=== PATIENT | female | born 1980 | race Two or more races ===

== ENCOUNTER 2017-11-13 19:55 | Emergency (ER) | payer MEDICAID, OTHER ==
[~2017-11-13] VITALS: Ht 157.5 cm; Wt 65.8 kg
[2017-11-13 20:26] VITALS: BP 137/99
== END 2017-11-13 23:26 | disposition left against medical advice (07) ==
LOC: ER 19:55
DX: M79.89 Other specified soft tissue disorders (principal); Z53.21 Procedure and treatment not carried out due to patient leaving prior to being seen by health care provider

== ENCOUNTER 2017-11-18 09:08 | Inpatient (IN) | payer MEDICAID, OTHER ==
[~2017-11-18] VITALS: Ht 160 cm; Wt 74.4 kg
[2017-11-18] MEDS ORDERED: SODIUM CHLORIDE 0.9% 1,000 ML IV ONE (09:59)
[2017-11-18 10:28] LABS: Basophils # (auto) 0 uL; Basophils % (auto) 0.4 % (0.0-2.0); Eosinophils # (auto) 0.1 uL; Eosinophils % (auto) 1.5 % (0.0-7.0); Hematocrit 38.3 % (36.0-46.0); Hemoglobin 12.8 g/dL (12.2-16.2); Lymphocytes # (auto) 1.3 uL; Lymphocytes % (auto) 14.4 % (10.0-50.0); Mean Corpuscular Hemoglobin 28.3 pg (28.0-32.0); Mean Corpuscular Hgb Conc. 33.4 g/dL (32.0-36.0); Mean Corpuscular Volume 84.6 fL (80.0-100.0); Monocytes # (auto) 0.7 uL; Monocytes % (auto) 7.8 % (0.0-12.0); Neutrophils # (auto) 6.9 uL; Neutrophils % (auto) 75.9 % (37.0-80.0); Platelet Count (auto) 410 10^3/uL (140-450); Red Blood Cells 4.53 10^6/uL (4.0-5.20); Red Cell Distribution Width 13.6 % (11.8-14.3); White Blood Cell 9.1 10^3/uL (4.4-10.8)
[2017-11-18 10:42] LABS: INR 1.02 (0.9-1.15); Partial Thromboplastin Time 32.2 sec (23.78-33.04); Prothrombin Time 10.9 sec (9.27-12.13)
[2017-11-18] MEDS ORDERED: cefTRIAXone 1GM/10ml IVPUSH 10 ML IV ONE (10:45)
[2017-11-18 10:53] LABS: Alanine Aminotransferase 22 U/L (13-56); Albumin 3.5 g/dL (3.4-5.0); Alkaline Phosphatase 74 U/L (45-117); Anion Gap 9 (5-15); Aspartate Aminotransferase 16 U/L (15-37); BUN/Creatinine Ratio 14.3; Bilirubin, Total 0.3 mg/dL (0.2-1.0); Blood Urea Nitrogen 13 mg/dL (7-18); Calcium 8.9 mg/dL (8.5-10.1); Carbon Dioxide 27 mmol/L (21-32); Chloride 102 mmol/L (98-107); GFR African American 90 mL/min; GFR Non-African American 74 mL/min; Glucose 105 mg/dL (74-106); Potassium 3.9 mmol/L (3.5-5.1); Sodium 138 mmol/L (136-145); Total Protein 8.6 g/dL (6.4-8.2)
[2017-11-18] MEDS ORDERED: TEMAZEPAM 15 MG CAP PO PRN (13:15)
[2017-11-18] MEDS ORDERED: LORazepam 0.5 MG TAB PO PRN (13:15)
[2017-11-18] MEDS ORDERED: ACETAMINOPHEN 500 MG TAB PO PRN (13:15)
[2017-11-18] MEDS ORDERED: MORPHINE SULFATE 8mg/ml INJ SDV IV PRN ×2 (13:15)
[2017-11-18] MEDS ORDERED: PROMETHAZINE HCL 25 MG/ML 1ML IV PRN (13:15)
[2017-11-18] MEDS ORDERED: NITROGLYCERIN 0.4 MG SL TAB SL PRN (13:15)
[2017-11-18] MEDS ORDERED: LACTULOSE 20Gm/30ML SOLN PO PRN (13:15)
[2017-11-18] MEDS: ENOXAPARIN SOD 40 MG/0.4 ML SYRINGE SC SCH (13:30)
[2017-11-18] MEDS: CLINDAMYCIN 600MG IV 50 ML IV SCH ×2 (13:39→22:13)
[2017-11-18] MEDS: SODIUM CHLORIDE 0.9% 1,000 ML IV SCH ×2 (13:40→23:15)
[2017-11-18 16:30] VITALS: BP 127/94
[2017-11-18 17:00] VITALS: BP 127/94
[2017-11-18] MEDS ORDERED: THIAMINE 100mg/ml INJ (200mg/2ml VIAL) IV ONE (20:45)
[2017-11-18] MEDS ORDERED: chlordiazePOXIDE HCL 25 MG CAP PO PRN (20:45)
[2017-11-18 22:00] VITALS: BP 123/71
[2017-11-18] MEDS: HYDROcodone-ACET 5/325MG TAB PO PRN (22:12)
[2017-11-19] MEDS: chlordiazePOXIDE HCL 5 MG CAP PO SCH ×5 (01:00→23:53)
[2017-11-19 03:02] LABS: Urine Bacteria FEW /hpf (None Seen); Urine Blood Negative /uL (Negative); Urine Specific Gravity 1.018 (1.001-1.035); Urine WBC 46 /hpf (0 - 5)
[2017-11-19 05:00] VITALS: BP 114/75
[2017-11-19] MEDS: CLINDAMYCIN 600MG IV 50 ML IV SCH ×3 (06:01→21:33)
[2017-11-19] MEDS ORDERED: cefTRIAXone 1GM/10ml IVPUSH 10 ML IV SCH (09:00)
[2017-11-19] MEDS: ENOXAPARIN SOD 40 MG/0.4 ML SYRINGE SC SCH ×2 (09:20→10:00)
[2017-11-19] MEDS ORDERED: THIAMINE 100mg/ml INJ (200mg/2ml VIAL) IV SCH (10:00)
[2017-11-19] MEDS ORDERED: DIVA500T53 PO (10:07)
[2017-11-19] MEDS ORDERED: TRAZ50TA2 PO (10:07)
[2017-11-19 13:00] VITALS: BP 116/81
[2017-11-19 17:00] VITALS: BP 123/83
[2017-11-19] MEDS: SODIUM CHLORIDE 0.9% 1,000 ML IV SCH ×2 (17:45→19:15)
[2017-11-19] MEDS: HYDROcodone-ACET 5/325MG TAB PO PRN (20:28)
[2017-11-19 22:00] VITALS: BP 112/78
[2017-11-20 05:00] VITALS: BP 121/76
[2017-11-20] MEDS: chlordiazePOXIDE HCL 5 MG CAP PO SCH (06:08)
[2017-11-20] MEDS: CLINDAMYCIN 600MG IV 50 ML IV SCH (06:08)
[2017-11-20] MEDS: SODIUM CHLORIDE 0.9% 1,000 ML IV SCH (06:09)
[2017-11-20 06:14] LABS: Basophils # (auto) 0 uL; Basophils % (auto) 0.5 % (0.0-2.0); Eosinophils # (auto) 0.2 uL; Eosinophils % (auto) 3.4 % (0.0-7.0); Hematocrit 36.1 % (36.0-46.0); Hemoglobin 12.2 g/dL (12.2-16.2); Lymphocytes # (auto) 1.5 uL; Lymphocytes % (auto) 22.6 % (10.0-50.0); Mean Corpuscular Hemoglobin 28.9 pg (28.0-32.0); Mean Corpuscular Hgb Conc. 33.8 g/dL (32.0-36.0); Mean Corpuscular Volume 85.5 fL (80.0-100.0); Monocytes # (auto) 0.7 uL; Monocytes % (auto) 10.6 % (0.0-12.0); Neutrophils # (auto) 4.2 uL; Neutrophils % (auto) 62.9 % (37.0-80.0); Nucleated Red Blood Cells % 0.1 %; Platelet Count (auto) 368 10^3/uL (140-450); Red Blood Cells 4.22 10^6/uL (4.0-5.20); Red Cell Distribution Width 13.7 % (11.8-14.3); White Blood Cell 6.6 10^3/uL (4.4-10.8)
[2017-11-20 06:30] LABS: Albumin 2.7 g/dL (3.4-5.0); Calcium 8.4 mg/dL (8.5-10.1); Potassium 3.9 mmol/L (3.5-5.1)
[2017-11-20 06:32] LABS: BUN/Creatinine Ratio 15.9
[2017-11-20 06:45] LABS: Bilirubin, Total 0.1 mg/dL (0.2-1.0); Total Protein 7.2 g/dL (6.4-8.2)
[2017-11-20 09:00] VITALS: BP 113/73
== END 2017-11-20 11:17 | disposition home or self-care (01) | DRG 383 ==
LOC: ER 09:08 → TELE 09:09 → TELE-WESTW 16:04 → WEST WING 11-19 23:58
PROVIDERS: ADMIT Internal Medicine; ATTEND Internal Medicine
DX: L03.116 Cellulitis of left lower limb (principal); E43 Unspecified severe protein-calorie malnutrition; I10 Essential (primary) hypertension; Z87.442 Personal history of urinary calculi; N20.0 Calculus of kidney; F10.20 Alcohol dependence, uncomplicated; Z82.49 Family history of ischemic heart disease and other diseases of the circulatory system; Z68.29 Body mass index [BMI] 29.0-29.9, adult; Z79.899 Other long term (current) drug therapy
CPT/HCPCS: 36415; 71045; 73700; 80053; 81001; 83605; 83880; 84484; 85025; 85610; 85652; 85730; 87040; 93970; 96361; 96374; J3490

== ENCOUNTER 2022-10-15 00:27 | Emergency (ER) | payer MEDICAID ==
[~2022-10-15] VITALS: Ht 160 cm; Wt 70.5 kg
[~2022-10-15 00:27] MED LIST: DIVA1TAB59 PO; DIVA500T2 PO; TRAZ50TA2 PO
[2022-10-15 00:41] VITALS: BP 156/96
== END 2022-10-15 01:58 | disposition left against medical advice (07) ==
LOC: ER 00:27
DX: H57.13 Ocular pain, bilateral (principal); Z53.21 Procedure and treatment not carried out due to patient leaving prior to being seen by health care provider

== ENCOUNTER 2025-04-06 17:10 | Emergency (ER) | payer MEDICAID ==
[~2025-04-06] VITALS: Ht 165.1 cm; Wt 85.0 kg
[~2025-04-06 17:10] MED LIST changes: +DIVA-91 PO; -DIVA500T2 PO; +TRAZ-227 PO; -TRAZ50TA2 PO
[2025-04-06 17:27] VITALS: BP 156/72; TEMP 97.9
[2025-04-06 18:16] LABS: Hematocrit 45.0 % (36.0-46.0); Hemoglobin 15.1 g/dL (12.2-16.2); Mean Corpuscular Hemoglobin 27.8 pg (28.0-32.0); Mean Corpuscular Volume 82.9 fL (80.0-100.0); Nucleated Red Blood Cells % 0.0 %
[2025-04-06 18:29] LABS: Alkaline Phosphatase 58 U/L (46-116); Anion Gap 11 (5-15); BUN/Creatinine Ratio 8.8 (10.0-20.0); Calcium 9.6 mg/dL (8.7-10.4); Carbon Dioxide 26 mmol/L (20-31); Chloride 100 mmol/L (98-107); Potassium 4.2 mmol/L (3.5-5.1); Sodium 137 mmol/L (136-145)
[2025-04-06 18:30] LABS: Alanine Aminotransferase < 9 U/L (7-40); Albumin 4.9 g/dL (3.2-4.8); Bilirubin, Total 0.4 mg/dL (0.2-1.0); Blood Urea Nitrogen 8 mg/dL (9-23); Glucose 131 mg/dL (74-106); Total Protein 9.1 g/dL (5.7-8.2)
[2025-04-06] MEDS: FAMOTIDINE 20 MG TAB PO ONE (19:00)
[2025-04-06] MEDS: MAALOX PLUS or MAALOX 30 ML PO ONE (19:00)
[2025-04-06] MEDS: hydrOXYzine 25 MG TAB or CAP PO ONE (19:01)
[2025-04-06] MEDS: ACETAMINOPHEN 325 MG TAB PO ONE (19:01)
[2025-04-06 19:03] VITALS: PULSE 88; RESP 19; O2SAT 98
--- NOTE | 2025-04-06 19:29 | ED.PDOC ---
History of Present Illness HPI Comments 45-year-old female with past medical history as alcohol abuse, anxiety presenting for evaluation midsternal chest pain over the past couple of days. Patient reports a constant pressure in the center of the chest. Some nausea, no vomiting with this. No associated shortness of breath. Patient reports quittin g alcohol sometime ago. Also keeps stating that she is very anxious. Feels as if her heart is racing. Chief Complaint: Chest Pain Time Seen by MD: 17:14 Primary Care Provider: tobias Allergies: Coded Allergies: NO KNOWN ALLERGIES (Unverified , 10/27/10) Home Meds Reported Medications Divalproex Sodium (Depakote) 500 Mg Tab, 1500 MG PO QPM, TAB 06/14/18 Divalproex Sodium (Divalproex Sodium Dr) 500 Mg Tab, 1000 MG PO DAILY, TAB 06/14/18 Trazodone Hcl (Trazodone Hcl) 50 Mg Tab, 100 MG PO BID, MG 11/19/17 Information Source: Patient Mode of Arrival: EMS Past Medical History PAST MEDICAL HISTORY: Kidney Stones Surgical History: Denies all surgeries INTERPERSONAL COMMUNICATIONS PROFESSOR History: No Pertinent INTERPERSONAL COMMUNICATIONS PROFESSOR History Family History Family History: No family hx of HTN Social History Smoker: Non-Smoker Alcohol: Denies ETOH Use Drugs: Denies Drug Use Lives In: Home Constitutional: denies: chills, diaphoresis, fatigue, fever, malaise, sweats, weakness, others EENTM: denies: blurred vision, double vision, ear bleeding, ear discharge, ear drainage, ear pain, ear ringing, eye pain, eye redness, hearing loss, mouth pain, mouth swelling, nasal discharge, nose bleeding, nose congestion, nose pain, photophobia, tearing, throat pain, throat swelling, voice changes, others Respiratory: denies: cough, hemoptysis, orthopnea, SOB at rest, shortness of breath, SOB with excertion, stridor, wheezing, others Cardiovascular: reports: chest pain, dizzy spells, diaphoresis, Dyspnea on exertion, edema, irregular heart beat, left arm pain, lightheadedness, palpitations, PND, syncope, others Gastrointestinal: denies: abdomen distended, abdominal pain, blood streaked bowels, constipated, diarrhea, dysphagia, difficulty swallowing, hematemesis, melena, nausea, poor appetite, poor fluid intake, rectal bleeding, rectal pain, vomiting, others Genitourinary: denies: abnormal vagina bleeding, burning, dyspareunia, dysuria, flank pain, frequency, hematuria, incontinence, pain, , vagina discharge, urgency, others Neurological: denies: dizziness, fainting, headache, left sided numbness, left sided weakness, numbness, paresthesia, pre-existing deficit, right sided numbnes s, right sided weakness, seizure, speech problems, tingling, tremors, weakness, others Musculoskeletal: denies: back pain, gout, joint pain, joint swelling, muscle pain, muscle stiffness, neck pain, others Integumetry: denies: bruises, change in color, change in hair/nails, dryness, laceration, lesions, lumps, rash, wounds, others Allergic/Immunocompromised: denies: Difficulty Healing, Frequent Infections, Hives, Itching, others Hematologic/Lymphatic: denies: anemia, blood clots, easy bleeding, easy bruising, swollen glands, others Endocrine: denies: excessive hunger, excessive sweating, excessive thirst, excessive urination, flushing, intolerance to cold, intolerance to heat, unexplained weight gain, unexplained weight loss, others Psychiatric: reports: anxiety, bipolar disorder, depression, hopeless, panic disorder, schizophrenia, sleepless, suicidal, others Physical Exam General Appearance: None HEENT: Normal ENT Inspection Neck: None Respiratory: No Accessory Muscle Use Cardiovascular: No JVD, Normal Peripheral Pulses, Regular Rate/Rhythm Breast Exam: Normal Gastrointestinal: Non Tender, Soft Genitalia: Deferred Pelvic: Deferred Rectal: Deferred Extremities: No pedal edema Neurologic: Alert, dado operator II-XII nml as Tested Cerebellar Function: Normal Reflexes: NOT DONE Skin: Normal Color Lymphatic: No Adenopathy Was a procedure done? Was a procedure done?: No EKG EKG : Pulse Rate (adult): 81 [place]: Normal Cardiac Rhythm: NSR Block: None Hypertrophy: None Differential Dx Considerations may include: ACS versus reflux versus anxiety versus muscular chest pain X-Ray, Labs, Meds, VS Vital Signs Date Time Temp Pulse Resp B/P (MAP) Pulse Ox O2 Delivery O2 Flow Rate FiO2 04/06/25 19:03 88 19 98 Room Air* 0 21 04/06/25 18:13 85 04/06/25 17:27 97.9 90 20 156/72 99 97.9 04/06/25 17:18 93 Lab Test 04/06/25 18:39 04/06/25 17:50 Range/Units Troponin I High Sensitivity 9 8 </=34 ng/L White Blood Count 13.0 H 4.4-10.8 10^3/uL Red Blood Count 5.42 H 4.0-5.20 10^6/uL Hemoglobin 15.1 12.2-16.2 g/dL Hematocrit 45.0 36.0-46.0 % Mean Corpuscular Volume 82.9 80.0-100.0 fL Mean Corpuscular Hemoglobin 27.8 L 28.0-32.0 pg Mean Corpuscular Hemoglobin Concent 33.6 32.0-36.0 g/dL Red Cell Distribution Width 14.5 H 11.8-14.3 % Platelet Count 366 140-450 10^3/uL Mean Platelet Volume 7.9 6.9-10.8 fL Neutrophils (%) (Auto) 91.2 H 37.0-80.0 % Lymphocytes (%) (Auto) 5.3 L 10.0-50.0 % Monocytes (%) (Auto) 3.3 0.0-12.0 % Eosinophils (%) (Auto) 0.0 0.0-7.0 % Basophils (%) (Auto) 0.2 0.0-2.0 % Neutrophils # (Auto) 11.9 H 1.6-8.6 10 ^3/uL Lymphocytes # (Auto) 0.7 0.4-5.4 10 ^3/uL Monocytes # (Auto) 0.4 0-1.3 10 ^3/uL Eosinophils # (Auto) 0 0-0.8 10 ^3/uL Basophils # (Auto) 0 0-0.2 10 ^3/uL Nucleated Red Blood Cells 0.0 % Sodium Level 137 136-145 mmol/L Potassium Level 4.2 3.5-5.1 mmol/L Chloride Level 100 98-107 mmol/L Carbon Dioxide Level 26 20-31 mmol/L Anion Gap 11 5-15 Blood Urea Nitrogen 8 L 9-23 mg/dL Creatinine 0.91 0.550-1.02 mg/dL Glomerular Filtration Rate Calc 80 >90 mL/min BUN/Creatinine Ratio 8.8 L 10.0-20.0 Serum Glucose 131 H 74-106 mg/dL Calcium Level 9.6 8.7-10.4 mg/dL Total Bilirubin 0.4 0.2-1.0 mg/dL Aspartate Amino Transferase (AST) 14 13-40 U/L Alanine Aminotransferase (ALT) < 9 7-40 U/L Alkaline Phosphatase 58 46-116 U/L B-Type Natriuretic Peptide 143.70 0-100 pg/mL Total Protein 9.1 H 5.7-8.2 g/dL Albumin 4.9 H 3.2-4.8 g/dL Plasma/Serum Blood Alcohol < 3.0 <10 mg/dL Current Medications Medications (Trade) Dose Ordered Sig/Maricruz Route Start Time Stop Time Status Last Admin Hydroxyzine Pamoate (Vistaril Oral) 25 mg ONCE ONCE PO 04/06/25 18:30 04/06/25 18:31 DC 04/06/25 19:01 Al Hydrox/Mg Hydrox/Simethicone (Maalox Plus) 30 ml ONCE ONCE PO 04/06/25 18:30 04/06/25 18:31 DC 04/06/25 19:00 Famotidine (Pepcid Tablet) 20 mg ONCE ONCE PO 04/06/25 18:30 04/06/25 18:31 DC 04/06/25 19:00 Acetaminophen (Tylenol Tablet) 650 mg ONCE ONCE PO 04/06/25 18:30 04/06/25 18:31 DC 04/06/25 19:01 Time of 1ST Reevaluation: 19:26 (Unable to perform reassessment, informed by nursing staff that the patient eloped prior to completion of workup and prior to reassessment) Reevaluation 1ST: N/A Patient Education/Counseling: Diagnosis, Treatment, Need For Follow Up Family Education/Counseling: No Family Present SEPSIS Sepsis Screen Date sepsis recognized/suspect: Apr 06, 2025 Time Sepsis recognized/suspect: 1728 Recent Procedure: No On Antibiotic Therapy: No Respiratory Rate >20: No Heart Rate >90: No Temp<36 C (96.8 F) or >38.3 C: No SBP <90 or MAP <65 mmHG: No New Acute Mental Status Change: No Is the patient on CPAP, BIPAP,: No Physician Orders Electrocardigram (04/06/25 17:27) Electrocardigram (04/06/25 18:27) Test, Urine (04/06/25 17:27) Vital Signs Date Time Temp Pulse Resp B/P (MAP) Pulse Ox O2 Delivery O2 Flow Rate FiO2 04/06/25 19:03 88 19 98 Room Air* 0 21 04/06/25 18:13 85 04/06/25 17:27 97.9 90 20 156/72 99 97.9 04/06/25 17:18 93 Laboratory Tests Test 04/06/25 17:50 White Blood Count 13.0 10^3/uL (4.4-10.8) H Medications Medications Dose Ordered Sig/Maricruz Route Start Time Stop Time Status Last Admin Dose Admin Acetaminophen 650 mg ONCE ONCE PO 04/06/25 18:30 04/06/25 18:31 DC 04/06/25 19:01 Al Hydrox/Mg Hydrox/Simethicone 30 ml ONCE ONCE PO 04/06/25 18:30 04/06/25 18:31 DC 04/06/25 19:00 Famotidine 20 mg ONCE ONCE PO 04/06/25 18:30 04/06/25 18:31 DC 04/06/25 19:00 Hydroxyzine Pamoate 25 mg ONCE ONCE PO 04/06/25 18:30 04/06/25 18:31 DC 04/06/25 19:01 Departure 1 Departure Time of Disposition: 20:33 (45-year-old female who came in for a couple of days of midsternal chest pressure. Given the reports of chest discomfort consider possible ACS. EKG with no signs of acute ischemia. Troponin obtained, serial troponins x2 remain negative, not elevating within critical range. Story seems more likely consistent with atypical chest pain. Given the midsternal chest discomfort and history of reflux consider possible reflux causing chest discomfort. CBC with no evidence of critical leukocytosis or significant anemia. Metabolic panel with no evidence of acute electrolyte abnormalities or acute kidney insufficiency. Patient also repeatedly saying that she was feeling very anxious, anxiety could be contributing to her presentation today. Patient was written for oral GI medications, Tylenol, hydroxyzine. Chest x-ray was ordered, however, patient eloped prior to getting a chest x-ray. Unable to reassess the patient as she eloped prior to completion of workup.) Impression: Primary Impression: Chest pain Additional Impressions: GERD (gastroesophageal reflux disease) Muscular chest pain Disposition: LEFT AWOL/ELOPED Condition: Stable Discharged With: Self Critical Care Note Critical Care Time?: No Stability Stability form required: No Heart Score Heart Score: Heart Score Response (Comments) Value History Slightly Suspicious 0 EKG Normal 0 Age <45 0 Risk Factors No known risk factors 0 Troponin Normal limit 0 Total 0 MIKI SOLOMON MD Apr 06, 2025 19:29
[2025-04-06 20:38] VITALS: PULSE 81
--- NOTE | 2025-04-07 03:05 | ECG ---
[facility] Test Date: 2025-04-06 Test Time: 18:13:31 Pat Name: OLE BECKETT Department: ED Room: Gender: F Train Crew Member: aretha : 1980 Requested By: MIKI SOLOMON Order Number: [id number] Reading MD: Richard Villagomez Measurements Intervals [place] Rate: 85 P: -4 MN: 142 QRS: 36 QRSD: 79 T: 45 QT: 405 QTc: 482 Interpretive Statements Sinus rhythm Probable left atrial enlargement Electronically Signed On 04-07-2025 18:49:59 PDT by Richard Villagomez Please click the below link to view image of tracing.
--- NOTE | 2025-04-07 03:10 | ECG ---
[facility] Test Date: 2025-04-06 Test Time: 17:18:15 Pat Name: OLE BECKETT Department: [facility] ED Patient ID: [id number] Room: Gender: F Die Presser: CARLY : 1980 Requested By: MIKI SOLOMON Order Number: [id number] Reading MD: Richard Villagomez Measurements Intervals [place] Rate: 93 P: -22 MD: 149 QRS: 46 QRSD: 80 T: 21 QT: 379 QTc: 472 Interpretive Statements Sinus rhythm Borderline T abnormalities, anterior leads Electronically Signed On 04-07-2025 18:49:40 PDT by Richard Villagomez Please click the below link to view image of tracing.
== END 2025-04-06 19:26 | disposition left against medical advice (07) ==
LOC: ER 17:10 → EDBD 17:10 → ER 19:26
DX: R07.89 Other chest pain (principal); K21.9 Gastro-esophageal reflux disease without esophagitis; Z79.899 Other long term (current) drug therapy; Z87.442 Personal history of urinary calculi
CPT/HCPCS: 36415; 80053; 80320; 83880; 84484; 85025; 93005